=== PATIENT | female | born 1980 | race Caucasian/White ===

== ENCOUNTER 2024-07-02 16:24 | Emergency (ER) | payer OTHER ==
[2024-07-02 16:35] VITALS: BP 137/81; PULSE 76; RESP 18; TEMP 98.9; BMI 30.2
[2024-07-02] MEDS ORDERED: IBUPROFEN 600 MG TABLET (FP) PO ONE (17:13)
[2024-07-02] MEDS: IBUPROFEN 600 MG TABLET (FP) PO ONE (17:17)
== END 2024-07-02 18:58 | disposition home or self-care (01) ==
LOC: FER 16:24
DX: S89.92XA Unspecified injury of left lower leg, initial encounter (principal); X50.1XXA Overexertion from prolonged static or awkward postures, initial encounter
CPT/HCPCS: 73562-TC-LT-FY; 99283-25